=== PATIENT | female | born 1955 | race Caucasian/White ===

== ENCOUNTER 2024-10-22 09:20 | Emergency (ER) | payer MEDICARE, BC ==
[~2024-10-22] VITALS: Ht 160 cm; Wt 44.7 kg
[2024-10-22 09:35] VITALS: BP 128/40; PULSE 81; O2SAT 100
--- NOTE | 2024-10-22 10:20 | RADIOLOGY REPORT ---
EXAM: DI KNEE, COMP 4 VW MIN HISTORY: KNEE PAIN COMPARISON: None TECHNIQUE: Four views of the left knee were performed. FINDINGS: No fracture or significant degenerative changes are identified about the left knee. No lateral patell ar tilt or subluxation on the sunrise view. No evidence of significant joint effusion. IMPRESSION: 1. No fracture or dislocation in the left knee.
[2024-10-22] MEDS: methylPREDNISolone sod succ 125mg/2ml vial IM ONE (11:09)
[2024-10-22 11:10] VITALS: RESP 16
[2024-10-22] MEDS: ketorolac trometh 30MG/ML vial 30 MG/ML VIAL IM ONE (11:10)
[2024-10-22] MEDS: LIDOcaine 1% W/epiNEPHrine 1:100,000 20ml vial SQ ONE (11:13)
[2024-10-22] MEDS: methylPREDNISolone acetate 80mg/ml inj**IM only IM ONE ×2 (11:18→11:19)
[2024-10-22] MEDS ORDERED: PRED20TA PO (11:35)
[2024-10-22] MEDS ORDERED: HYDR-3965 PO (11:35)
--- NOTE | 2024-10-22 11:37 | Physician Documentation ---
History of Present Illness ~ Chief Complaint: Knee Pain Stated Complaint: L KNEE INJURY Time Seen by MD: 09:49 HPI 69-year-old female reports a chief complaint of a left knee pain. Patient states that she tweaked her knee and states that she began to have swelling to the knee. Patient states that she is having pain to the anterior medial aspect of the tibia. Endorses mild pain to the joint line. He is able to ambulate but does endorse pain. Denies fevers or chills. No other complaints at this time Tetanus witin 5 years: Yes Medication Reconciliation Allergies: Coded Allergies: ciprofloxacin (Unverified Allergy, Unknown, 10/22/24) Uncoded Allergies: NAPHICILLIN (Allergy, Unknown, 10/22/24) Physical Exam Vital Signs: Temperature: 98.0, Source: Temporal, Heart Rate: 81, Respiratory Rate: 16, BP: 128/40, Pulse Oximetry: 100, Weight: 44.700 Oxygen Flow Rate: 0 Physical Exam General: Well developed, well nourished, no distress. HEENT: Atraumatic, normal conjunctiva, moist mucous membranes. Neck: Full range of motion, supple. Respiratory: Lungs clear, no respiratory distress. Chest: No accessory muscle use, nontender. Cardiovascular: Regular rate and rhythm. Gastrointestinal: Soft, nontender, nondistended. Bowel sounds present. Extremities: So there stuff was ready to go to so we can discharge him after this left knee exam: Negative for permanents gross deformities. Positive for mild joint effusion. Positive for tenderness to the medial aspect of the tibia consistent with pes answering bursa and bursitis. Negative for erythema. Negative pain with flexion-extension of the knee. Client cruciate ligaments intact. Flexion-extension from 0-130. Neurovascular intact distally Back: No midline tenderness, no CVA tenderness. Neurologic: Oriented x4. Distal gross motor and sensory intact all four extremities. Moves all 4 extremities spontaneously. Psychiatric: Normal mood and affect. Skin: Normal color, warm and dry. No edema, no ecchymosis Progress Results/Orders Results/Orders Completed Orders - BINA JACOBSEN Methylprednisolone Acetate*Im* (Depo-Med (10/22/24 10:40) Lidocaine 1% W/Epi 1:100,000 (Xylocaine (10/22/24 10:40) Ketorolac Trometh 30mg/Ml Vial (Toradol (10/22/24 10:40) Methylprednisolone Sod Succ (Solumedrol (10/22/24 10:50) Methylprednisolone Acetate*Im* (Depo-Med (10/22/24 11:15) Medications Received in ER Medications (Trade) Dose Ordered Sig/Lori Route PRN Reason Start Time Stop Time Status Last Admin Dose Admin (Toradol inj. 30mg/ml) 30 mg ONCE ONCE IM 10/22/24 10:40 10/22/24 10:41 DC 10/22/24 11:10 30 MG Vital Signs 10/22/24 10/22/24 09:35 11:10 Temp 98.0 Pulse 81 Resp 16 16 B/P (MAP) 128/40 Pulse Ox 100 O2 Flow Rate 0 Medical Decision Making Additional info obtained from: old records Findings After detailed discussion and joint medical decision-making, diagnostic and imaging results were discussed with the patient. At this time patient has symptoms consistent with pes anserine bursitis and an injection we will be given. Patient will be sent home with pain medication as well as steroids. Patient advised to follow up with Orthopedics. ER precautions were given. Patient is stable upon discharge. All patient questions answered to satisfaction General Diff Dx:Considerations: Include: Other (Pes anserine bursitis, cellulitis, knee pain, osteoarthritis) Departure Disposition: HOME / SELF CARE / HOMELESS Impression: Primary Impression: Pes anserinus bursitis of left knee Condition: Stable Discharge Instructions: Knee Effusion, Acute Knee Pain, Adult Referrals: NO PRIMARY CARE PROVIDER (PCP) Prescriptions Prednisone* (Prednisone*) 20 Mg Tablet 1 TAB PO Q12H for 5 Days, #10 TAB Prov: BINA JACOBSEN 10/22/24 Hydrocodone Bit/Acetaminophen 5/325 MG ([place] 5/325 MG) 5 Mg/325 Mg Tablet 1 TAB PO Q12H PRN PRN for pain for 5 Days, #10 TAB Prov: BINA JACOBSEN 10/22/24 Education Educated: Patient Educated regarding: diagnosis, treatment Signature Scribe Signature: none used Attestation: Scribed for Bina Jacobsen by Bina GARCIA . 10/22/24 11:36 BINA JACOBSEN October 22, 2024 11:36
[2024-10-22 11:47] VITALS: TEMP 98
== END 2024-10-22 11:52 | disposition home or self-care (01) ==
LOC: ER 09:20
DX: M70.52 Other bursitis of knee, left knee (principal); Z88.1 Allergy status to other antibiotic agents
CPT/HCPCS: 73564; 96372; 99283; J1885